=== PATIENT | female | born 1980 ===

== ENCOUNTER → 2019-03-03 | Outpatient (CLI) | payer OTHER | LOC: FB.CLBR 16:00 | PROVIDERS: ATTEND Nurse Practitioner Family | DX: R10.9 Unspecified abdominal pain (principal); R11.2 Nausea with vomiting, unspecified; Z87.442 Personal history of urinary calculi; Z98.890 Other specified postprocedural states | CPT/HCPCS: 36415; 74018; 80053; 81001; 85025; 87086 ==